=== PATIENT | female | born 1955 | race African-American/Black ===

== ENCOUNTER 2023-03-21 06:21 | Emergency (ER) | payer MEDICARE, MEDICAID ==
[~2023-03-21] VITALS: Ht 162.6 cm; Wt 109.0 kg
[~2023-03-21 06:21] MED LIST: AMLO10TA80 MT; ASPI-1497 MT; ATOR40TA70 MT; DARU1TAB3 PO; FURO-151 MT; GLIP10TA10 MT; METF-416 PO; NITR0.4T49 SL; TICA90TA MT; VALS160T28 MT; zolpidem
[2023-03-21 06:42] LABS: BASOPHILS % 0.4 % (0.0-2.0); EOSINOPHILS % 3.9 % (0.0-5.0); HEMATOCRIT. 34.6 % (36.0-48.0); HEMOGLOBIN. 11.1 g/dL (12.0-16.0); MEAN CORPUSCULAR HEMOGLOBIN 26.9 pg (28.0-32.0); MEAN CORPUSCULAR VOLUME 83.8 fL (81.0-99.0); MEAN PLATELET VOLUME 7.3 fl (7.4-10.4); MONOCYTES % 6.2 % (2.0-8.0); NEUTROPHILS % 65.5 % (40.0-76.0); PLATELET 346 x1000/uL (130-400); RED BLOOD CELL COUNT 4.13 mill/uL (4.2-5.4); RED CELL DISTRIBUTION WIDTH 15.9 % (11.6-14.6)
[2023-03-21 06:53] LABS: CHLORIDE 102 mEq/L (98-107); PARTIAL THROMBOPLASTIN TIME 29.6 sec (23.4-31.0)
[2023-03-21] MEDS ORDERED: NITROGLYCERIN 0.4MG TABLET SL SL ONE (11:15)
[2023-03-21] MEDS: NITROGLYCERIN 0.4MG TABLET SL SL PRN ×2 (12:20→12:30)
[2023-03-21 12:50] VITALS: BP 120/67
== END 2023-03-21 12:53 | disposition home or self-care (01) ==
LOC: ER 06:21
DX: I20.9 Angina pectoris, unspecified (principal); I10 Essential (primary) hypertension; E78.00 Pure hypercholesterolemia, unspecified; Z79.82 Long term (current) use of aspirin; Z86.59 Personal history of other mental and behavioral disorders
CPT/HCPCS: 36415; 71045; 80053; 83880; 84484; 85025; 93005; 99285

== ENCOUNTER → 2023-07-22 | Outpatient (CLI) | payer MEDICARE, MEDICAID ==
[~2023-07-22] MED LIST changes: +ATOR-2 PO; -ATOR40TA70 MT; +EMPA10TA PO; +EZET10TA13 PO; +METO-539 PO; +OMEP20TA23 PO; -TICA90TA MT
== END | disposition home or self-care (01) ==
LOC: CARD 12:56
PROVIDERS: ATTEND Thoracic Surgery (Cardiothoracic Vascular Surgery)
DX: Z01.818 Encounter for other preprocedural examination (principal); Z01.811 Encounter for preprocedural respiratory examination; R00.1 Bradycardia, unspecified; I25.10 Atherosclerotic heart disease of native coronary artery without angina pectoris; I51.7 Cardiomegaly; Z20.822 Contact with and (suspected) exposure to COVID-19
CPT/HCPCS: 71045; 87426; 93005; C9803

== ENCOUNTER 2025-10-03 13:37 | Emergency (ER) | payer MEDICARE, MEDICAID ==
[~2025-10-03] VITALS: Ht 165.1 cm; Wt 87.0 kg
[~2025-10-03 13:37] MED LIST changes: -AMLO10TA80 MT; +AMLO10TA80 PO; +ASPI-1160 PO; -ASPI-1497 MT; -ATOR-2 PO; -DARU1TAB3 PO; +EVOL420W2 SQ; -EZET10TA13 PO; +FAMO20TA8 PO; +FERR-63 PO; -FURO-151 MT; -GLIP10TA10 MT; +GLIP10TA17 PO; +LIP40 PO; -METF-416 PO; +NEED-123 SUBCUT; -NITR0.4T49 SL; -OMEP20TA23 PO; +SPIR25TA6 PO; -VALS160T28 MT; +ZOLP10TA2 PO; -zolpidem
[2025-10-03 13:47] VITALS: TEMP 37.1; O2SAT 98
[2025-10-03 15:02] LABS: BASOPHILS % 0.3 % (0.0-2.0); EOSINOPHILS % 0.1 % (0.0-5.0); HEMATOCRIT. 45.2 % (36.0-48.0); HEMOGLOBIN. 14.1 g/dL (12.0-16.0); LYMPHOCYTES % 27.1 % (20.0-50.0); MEAN PLATELET VOLUME 8.5 fl (7.4-10.4); MONOCYTES % 8.7 % (2.0-8.0); NEUTROPHILS % 63.8 % (40.0-76.0); PLATELET 222 x1000/uL (130-400); RED BLOOD CELL COUNT 4.94 mill/uL (4.2-5.4); RED CELL DISTRIBUTION WIDTH 15.1 % (11.6-14.6)
[2025-10-03 15:20] LABS: CREATININE 1.2 mg/dL (0.6-1.0); UREA NITROGEN BLOOD 13.0 mg/dL (9-23)
[2025-10-03 17:51] VITALS: BP 131/79; PULSE 77; RESP 16; O2SAT 98
== END 2025-10-03 17:56 | disposition home or self-care (01) ==
LOC: ER 13:37
DX: D25.9 Leiomyoma of uterus, unspecified (principal); I25.2 Old myocardial infarction; E78.00 Pure hypercholesterolemia, unspecified; I10 Essential (primary) hypertension; Z86.73 Personal history of transient ischemic attack (TIA), and cerebral infarction without residual deficits; Z79.84 Long term (current) use of oral hypoglycemic drugs; Z95.1 Presence of aortocoronary bypass graft; Z79.899 Other long term (current) drug therapy; Z79.82 Long term (current) use of aspirin; Z88.5 Allergy status to narcotic agent
CPT/HCPCS: 36415; 76830; 76856; 80048; 85025; 99284